=== PATIENT | female | born 1955 | race Caucasian/White ===

== ENCOUNTER → 2020-12-29 | Outpatient (CLI) | payer OTHER | LOC: KOH-I 12:48 | DX: R06.02 Shortness of breath (principal); R05 Cough | CPT/HCPCS: 71046 ==

== ENCOUNTER → 2021-12-28 | Outpatient (CLI) | payer OTHER | LOC: CT 09:23 | DX: D69.6 Thrombocytopenia, unspecified (principal); K76.0 Fatty (change of) liver, not elsewhere classified; K76.89 Other specified diseases of liver | CPT/HCPCS: 36415; 82565; Q9967 ==